=== PATIENT | male | born 1965 | race Two or more races ===

== ENCOUNTER 2017-02-13 09:56 | Day surgery (SDC) | payer OTHER ==
[2017-02-10 17:22] VITALS: BMI 28.6
[2017-02-13] VITALS (11 sets, daily range): BP systolic 105–137; BP diastolic 76–88; PULSE 66–94; RESP 11–20; Ht 180.3 cm; Wt 89.2 kg
[~2017-02-13] VITALS: Ht 180.3 cm; Wt 89.2 kg
[~2017-02-13 09:56] MED LIST: CIPROFLOXACIN 400 MG in D5W 200 ML IVPB SCH
[2017-02-13 11:29] LABS: ADD SCAN DIFF NO
[2017-02-13 11:43] LABS: BASOPHILS % 0.3 % (0.0-2.0); EOSINOPHILS # 0.1 10^3/ul (0.0-0.5); EOSINOPHILS % 0.9 % (0.0-7.0); HEMOGLOBIN 15.7 g/dl (14.0-18.0); LYMPHOCYTES # 3.4 10^3/ul (0.8-2.9); LYMPHOCYTES % 28.5 % (15.0-51.0); MEAN CORPUSCULAR HEMOGLOBIN 31.2 pg (29.0-33.0); MEAN CORPUSCULAR HGB CONC 34.9 g/dl (32.0-37.0); MEAN CORPUSCULAR VOLUME 89.5 fl (82.0-101.0); MEAN PLATELET VOLUME 12.2 fl (7.4-10.4); MONOCYTE # 1.2 10^3/ul (0.3-0.9); MONOCYTES % 10.1 % (0.0-11.0); NEUTROPHILS % 59.7 % (39.0-77.0); PLATELET COUNT 171 10^3/UL (140-415); RED BLOOD COUNT 5.03 10^6/ul (4.70-6.10); RED CELL DISTRIBUTION WIDTH 12.8 % (11.5-14.5); WHITE BLOOD COUNT 11.8 10^3/ul (4.8-10.8)
[2017-02-13 11:49] LABS: INR 1.08; PT RATIO 1.1
[2017-02-13 11:50] LABS: PARTIAL THROMBOPLASTIN TIME 25.2 Sec (25.0-35.0)
[2017-02-13 11:53] LABS: CALCIUM 9.1 mg/dl (8.4-10.2); CREATININE 0.5 mg/dl (0.61-1.24)
[2017-02-13] MEDS ORDERED: INSULIN REGULAR 10 ML INJ IV ONE ×2 (12:54→13:00)
[2017-02-13] MEDS ORDERED: INSULIN ASPART [NOVOLOG] 3 ML PEN IV ONE (13:00)
[2017-02-13] MEDS ORDERED: INSULIN REGULAR, HUMAN 100 UNIT/1 ML 3ML VIAL IV ONE (13:00)
[2017-02-13] MEDS ORDERED: FENTAnyl 50 MCG/ML VIAL ONE (13:08)
[2017-02-13] MEDS ORDERED: NEOSTIGMINE 3 MG/3 ML SYRINGE ONE (13:11)
[2017-02-13] MEDS ORDERED: ROCURONIUM 50 MG INJ ONE (13:11)
[2017-02-13] MEDS ORDERED: LIDOCAINE 2% (SDV) 5 ML INJ ONE (13:11)
[2017-02-13] MEDS ORDERED: GLYCOPYRROLATE 0.4 MG INJ ONE (13:11)
[2017-02-13] MEDS ORDERED: SUCCINYLCHOLINE CHLORIDE 100 MG/5 ML SYG IV ONE (13:11)
[2017-02-13] MEDS ORDERED: PROPOFOL 20 ML ONE (13:11)
--- NOTE | 2017-02-13 13:42 | HP ---
DATE OF ADMISSION: 02/13/2017 HISTORY OF PRESENT ILLNESS: Manohar is a 51-year-old man with a history of nephrolithiasis who prese nted with a retained stent. He is status post 2 lithotripsies in June and a stent was placed i n September 2016. He is noted to have on KUB a retained left ureteral stent with stone burden in the lower pole of the kidney. An in-office attempt at removal of the stent was undertaken, but due to encrustation, this was not able to be performed. The patient now presents today for cystoscopy, end oscopic removal of left ureteral stent, possible endoscopic holmium laser lithotripsy, ureteroscopy with reinsertion of stent. PAST MEDICAL HISTORY: Nephrolithiasis, diabetes, hypertension, hyperlipidemia. PAST SURGICAL HISTORY: ESWL and insertion of a stent. HOME MEDICATIONS: 1. Lisinopril. 2. Glimepiride. 3. Simvastatin. 4. Aspirin on hold. PHYSICAL EXAMINATION: LUNGS: Clear breath sounds bilaterally. HEART: Regular rate and rhythm. ABDOMEN: Soft, nondistended, positive tenderness on the left side. BACK: Positive left CVA tenderness. GENITALIA: Normal shaft of penis, meatus, scrotum, testicles, and epididymis. IMPRESSION: Retained left ureteral stent status post 2 ESWL. PLAN: Cystoscopy, removal of left stent, possible ureteroscopy, endoscopic holmium laser lithotrips y, insertion of stent. 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 We additionally discussed that I may not be able to remove the stent today, and that a secondary procedure including an open procedu re may be required. The potential of removal of the stent and thus causing injury to the ureter, bl adder, and kidney have additionally been discussed. He understands that this is a highly risky proc edure and should obstruction being noted or concern for edema, then a secondary stent would be repla lola, and that this would then have to be removed in a timely fashion in the office. The potential i mplications of the retained stent were additionally reviewed. I feel they are well informed. Gener al complications of this procedure were additionally discussed including, but not limited to, anesth etic risk of DVT, PE, MS, anaphylaxis, respiratory failure, injury to the penis, urethra, prostate, bladder, ureter, kidney, and surrounding tissues. They elected to proceed as above. Dictated By: YESENIA MEHTA/YUVAL Conf#: [id number] DID#: [id number]
[2017-02-13] MEDS ORDERED: IOHEXOL 300MG/ML 30 ML BTL ONE (13:47)
[2017-02-13] MEDS ORDERED: METOCLOPRAMIDE 10 MG INJ IV PRN (14:00)
[2017-02-13] MEDS ORDERED: HYDROmorphONE (0.2 MG/ML) 10ML SYG IV PRN ×3 (14:00)
[2017-02-13] MEDS ORDERED: ONDANSETRON 4 MG INJ IV PRN (14:00)
[2017-02-13] MEDS ORDERED: FENTAnyl 50 MCG/ML VIAL IV PRN (14:00)
[2017-02-13] MEDS ORDERED: MEPERIDINE 25 MG INJ IV PRN (14:00)
[2017-02-13] MEDS ORDERED: ALBUTEROL 0.083% (NEB) 2.5 MG/3 ML AMP HHN ONE (14:00)
[2017-02-13] MEDS ORDERED: DIPHENHYDRAMINE 50 MG INJ IV PRN (14:00)
--- NOTE | 2017-02-13 14:24 | PDOCDIS ---
Discharge Instructions DIAGNOSIS Discharge Diagnosis: kidney stone CONDITION Patient Condition: Good HOME CARE INSTRUCTIONS: Diet Instructions: Regular ACTIVITY: Activity Restrictions: No Restrictions FOLLOW UP/APPOINTMENTS Appointments 1 week OTHER ORDERS: Other Orders: dc to home when awake and stable. does not need to void before discharge. YESENIA OLVERA Feb 13, 2017 14:24
--- NOTE | 2017-02-13 15:51 | OPR ---
DATE OF OPERATION: 02/13/2017 BRIEF HISTORY: Manohar is a gentleman with a retained left ureteral stent and significant stone carson en in the left lower pole who presents for removal of stent which was not able to be performed in e office. The risks of the procedure were reviewed and he would like to proceed. PREOPERATIVE DIAGNOSIS: Nephrolithiasis retained stent. POSTOPERATIVE DIAGNOSIS: Nephrolithiasis retained stent. OPERATION PERFORMED: Cystoscopy, removal left ureteral stent, left retrograde pyelogram, left urete roscopy, insertion, left ureteral stent. SURGEON: Yesenia Dutton MD ANESTHESIA: General. COMPLICATIONS: None. DRAINS: 26 cm 6-Romanian stent. DESCRIPTION OF PROCEDURE: On the operating room table in the supine lithotomy position, the patient was prepped and draped in the usual fashion after anesthesia was induced. A timeout was then taken . Appropriate pressure points were padded and he received preoperative antibiotic therapy. A KUB w as obtained which demonstrated the previously placed left ureteral stent to be in proper anatomical position. Rigid cystoscopy was undertaken with a 12-degree, 30-degree and 70-degree angle lens. No abnormalities of the anterior urethra could be appreciated. Enlargement of the lateral lobes of e prostate was noted. The bladder was inspected in a systematic fashion protruding from the left ur eteral orifice was a left ureteral stent, marked edema around this area was appreciated encrustation of the distal stent was additionally noted. The right ureteral orifice was within normal limits. There is trabeculation of the bladder, but no other abnormalities. Utilizing the rigid graspers, e left ureteral stent was removed intact. There was resistance yet with gentle manipulation the karley nt was slowly removed without any noted complications. Review of the stent revealed that it was rem radhika intact. Yet, there was encrustation around the stent. A left retrograde pyelogram was then un dertaken. There were multiple filling defects in the distal left ureter. There was no extravasatio n of contrast. There was a significant amount of stone noted in the lower pole of the left kidney. Due to the above with concern for retained fragments in the distal ureter, ureteroscopy was easily undertaken after a 0.35 sensor wire was placed up to the level of the renal pelvis. The ureteroscop e was inserted into the distal ureter. Marked edema of the ureter was appreciated yet there was no noted stone. The ureteroscope was then removed intact and due to concern of edema a 26 cm 6-Romanian double-J ureteral stent was inserted with the proximal coiling in the upper renal esperanza in the dista l aspect coiling within the bladder touch the distal limb was a taper string. Proper position was c onfirmed with direct vision fluoroscopy and a KUB. He tolerated procedure well and returned to the recovery room in stable condition. He will follow up in the office to discuss staged extracorporea l shockwave lithotripsy or removal of stent within 1 to 2-week period of time. Once again it was di scussed with the patient and his family members the importance of timely removal of the stent, withi n a 3 month period of time, so that repeat encrustation and concern does not occur. I feel they are well informed of my concerns. Dictated By: YESENIA MEHTA/NTS Conf#: [id number] DID#: [id number]
--- NOTE | 2017-02-14 11:21 | RADRPT ---
PROCEDURE: X-ray fluoroscopy guidance CLINICAL INDICATION: RETROGRADES, REMOVAL AND REPLACEMENT JJ STENT LEFT TECHNIQUE: Fluoroscopic guidance was utilized for intraoperative procedure. COMPARISON: None. FINDINGS: Fluoroscopic guidance was utilized for intraoperative procedure. 16 seconds of fluoroscopy time was utilized for the procedure. 7 x-ray images were obtained during the procedure. A left ureteral stent is noted with the superior pigtail curled within an upper pole esperanza. IMPRESSION: X-ray fluoroscopic guidance utilized for intraoperative procedure. Successful placement of a left ureteral stent. Please see procedure note details. RPTAT: EE Physician Remy Date Time Electronically viewed and signed by Physician Remy on 02/14/2017 11:21 RA/
== END 2017-02-13 15:37 | disposition home or self-care (01) ==
LOC: SDS 09:56
PROVIDERS: ATTEND Urology
DX: N20.0 Calculus of kidney (principal); E11.9 Type 2 diabetes mellitus without complications; I10 Essential (primary) hypertension; E78.5 Hyperlipidemia, unspecified; E66.9 Obesity, unspecified; Z68.27 Body mass index [BMI] 27.0-27.9, adult
CPT/HCPCS: 52332; 74420; 80048; 82962; 85025; 85610; 85730; C2617; J0330; J0744; J2710; J3010; Q9967; Z7512; Z7610; J1815

== ENCOUNTER 2017-03-03 10:41 | Day surgery (SDC) | payer OTHER ==
[2017-03-02 14:08] VITALS: BMI 27.7
[2017-03-03] VITALS (10 sets, daily range): BP systolic 78–118; BP diastolic 6–69; PULSE 72–99; RESP 14–20; Ht 180.3 cm; Wt 91.0 kg
[~2017-03-03] VITALS: Ht 180.3 cm; Wt 91.0 kg
[~2017-03-03 10:41] MED LIST changes: +CIPROFLOXACIN 400 MG in D5W 200 ML IVPB ONE; -CIPROFLOXACIN 400 MG in D5W 200 ML IVPB SCH; +FENTAnyl 50 MCG/ML VIAL ONE; +MIDAZOLAM 1 MG/ML 2 ML INJ ONE; +PROPOFOL 20 ML ONE
[2017-03-03] MEDS ORDERED: PROPOFOL 20 ML ONE (10:43)
[2017-03-03] MEDS ORDERED: MEPERIDINE 25 MG INJ IV PRN (11:00)
[2017-03-03] MEDS ORDERED: EPHEDrine SULFATE 50 MG/5 ML SYG IV PRN (11:00)
[2017-03-03] MEDS ORDERED: HYDROmorphONE (0.2 MG/ML) 10ML SYG IV PRN ×3 (11:00)
[2017-03-03] MEDS ORDERED: ONDANSETRON 4 MG INJ IV PRN (11:00)
[2017-03-03] MEDS ORDERED: morphine (1 MG/ML) 10ML SYRINGE IV PRN ×3 (11:00)
[2017-03-03] MEDS ORDERED: METOCLOPRAMIDE 10 MG INJ IV PRN (11:00)
[2017-03-03] MEDS ORDERED: DIPHENHYDRAMINE 50 MG INJ IV PRN (11:00)
[2017-03-03] MEDS ORDERED: LABETALOL HCL 20MG INJ IV PRN (11:00)
[2017-03-03 11:38] LABS: ADD SCAN DIFF NO
[2017-03-03 11:44] LABS: BASOPHILS % 0.2 % (0.0-2.0); EOSINOPHILS # 0.2 10^3/ul (0.0-0.5); EOSINOPHILS % 1.5 % (0.0-7.0); HEMATOCRIT 42.4 % (42.0-52.0); LYMPHOCYTES # 2.8 10^3/ul (0.8-2.9); LYMPHOCYTES % 22.9 % (15.0-51.0); MEAN CORPUSCULAR HEMOGLOBIN 31.9 pg (29.0-33.0); MEAN CORPUSCULAR HGB CONC 35.4 g/dl (32.0-37.0); MEAN CORPUSCULAR VOLUME 90.2 fl (82.0-101.0); MEAN PLATELET VOLUME 11.7 fl (7.4-10.4); MONOCYTE # 1.4 10^3/ul (0.3-0.9); MONOCYTES % 11.6 % (0.0-11.0); NEUTROPHIL # 7.6 10^3/ul (1.6-7.5); NEUTROPHILS % 63.5 % (39.0-77.0); PLATELET COUNT 175 10^3/UL (140-415); RED CELL DISTRIBUTION WIDTH 12.2 % (11.5-14.5)
[2017-03-03 11:58] LABS: ALBUMIN 3.9 g/dl (3.3-4.9); ALBUMIN/GLOBULIN RATIO 1.3; BILIRUBIN,INDIRECT 0.5 mg/dl (0-1.1); BILIRUBIN,TOTAL 0.5 mg/dl (0.2-1.3); TOTAL PROTEIN 6.9 g/dl (6.1-8.1)
[2017-03-03 12:00] LABS: INR 1.05; PROTIME 13.7 Sec (12.2-14.2); PT RATIO 1.1
[2017-03-03 12:01] LABS: PARTIAL THROMBOPLASTIN TIME 28.3 Sec (25.0-35.0)
[2017-03-03 12:02] LABS: CALCIUM 9.2 mg/dl (8.4-10.2); CREATININE 0.51 mg/dl (0.61-1.24); POTASSIUM 3.9 mmol/L (3.5-5.1)
--- NOTE | 2017-03-03 12:19 | PREOPHP ---
DATE OF ADMISSION: 03/03/2017 HISTORY OF PRESENT ILLNESS: Manohar is a 51-year-old male with nephrolithiasis. He is status post e xchange of an encrusted ureteral stent. In the lower pole of the left kidney, he is noted to have a 9 mm stone which is radiodense. He now presents for left extracorporeal shock wave lithotripsy. PAST MEDICAL HISTORY: Nephrolithiasis, diabetes, hyperlipidemia. PAST SURGICAL HISTORY: Status post exchange of ureteral stent, ESWL. ALLERGIES: NONE. MEDICATIONS: 1. Lisinopril. 2. Glimepiride. 3. Simvastatin. 4. Aspirin on hold. REVIEW OF SYSTEMS: As per chart. PHYSICAL EXAMINATION: LUNGS: Good breath sounds bilaterally. HEART: Regular rate and rhythm. ABDOMEN: Soft, nontender, no palpable masses. FLANK: No CVA tenderness, no masses. IMPRESSION: Left nephrolithiasis. PLAN: Left extracorporeal shock wave lithotripsy. How the procedure is performed, potential compli cations and side effects were additionally reviewed including, but not limited to, renal fracture, d amage to surrounding organs, infection, obstruction, pain, hypertension, exacerbation of diabetes, r equirement for staged intervention, requirement of removal of stent in a timely fashion to avoid enc rustation, and urinary retention as well as anesthetic risks including, but not limited to, DVT, PE, ID. He would like to proceed with the above. This has been explained to him on multiple occasions . All questions answered. Dictated By: YESENIA OLVERA MD EGR/NTS Conf#: [id number] DID#: [id number] CC: YESENIA OLVERA MD;*End*
[2017-03-03] MEDS ORDERED: CIPROFLOXACIN 400MG/D5W 200 ML ONE (13:31)
[2017-03-03] MEDS ORDERED: DEXAMETHASONE 4 MG/ML 1 ML INJ ONE (13:49)
[2017-03-03] MEDS ORDERED: KETOROLAC 30 MG INJ ONE (13:49)
[2017-03-03] MEDS ORDERED: METOCLOPRAMIDE 10 MG INJ ONE (13:49)
[2017-03-03] MEDS ORDERED: ONDANSETRON 4 MG INJ ONE (13:49)
--- NOTE | 2017-03-03 14:10 | PDOCDIS ---
Discharge Instructions CONDITION Patient Condition: Good HOME CARE INSTRUCTIONS: Diet Instructions: Regular ACTIVITY: Activity Restrictions: No Restrictions FOLLOW UP/APPOINTMENTS Appointments 2 weeks, call for appointment OTHER ORDERS: Other Orders: dc to home when awake and satble does not need to void prior to discharge SCHOOL/WORK RELEASE May return to School/Work on: March 21, 2017 YESENIA OLVERA March 03, 2017 14:10
--- NOTE | 2017-03-03 14:42 | OPR ---
DATE OF OPERATION: BRIEF HISTORY: Manohar is a 51-year-old male with nephrolithiasis. He is status post exchange of an encrusted left ureteral stent and now presents for left extracorporeal shockwave lithotripsy of a 9 x 9-mm left lower pole stone. PREOPERATIVE DIAGNOSIS: Left nephrolithiasis. POSTOPERATIVE DIAGNOSIS: Left nephrolithiasis. PROCEDURE: Left extracorporeal shockwave lithotripsy. SURGEON: Dr. Dutton. ANESTHESIA: General. COMPLICATIONS: None. DESCRIPTION OF PROCEDURE: The patient was brought into the operating room and placed on the MWI F2 lithotripter for left extracorporeal shockwave lithotripsy. Appropriate pressure points we re padded. He received preoperative antibiotic therapy and a time-out was undertaken. Fluoroscopy was undertaken in the AP and lateral projection, which demonstrated the previously placed left urete ral stent to be in proper anatomical position in the lower pole. Overlying the renal fossa was a 9 x 9-mm radiodense stone. The stone burden was placed in the appropriate focal point which allowed f or left extracorporeal shockwave lithotripsy, with an initial energy setting of 4, which was progres sively increased to 7 at 200 shocks. A pause was undertaken. Intermittent fluoroscopy demonstrated the focal point to be in proper anatomical position. His position was adjusted appropriately, and as indicated excellent fragmentation was noted. He tolerated the procedure well and transferred to the recovery room in stable condition. In 2 weeks' time he will obtain a followup KUB with obliques and possible cysto stent removal versus staged intervention. I have called into his pharmacy [facility], one to two tabs p.o. q.4h, dispense #30, no refills. Dictated By: YESENIA MEHTA/NTS Conf#: [id number] DID#: [id number]
--- NOTE | 2017-03-03 15:43 | RADRPT ---
PROCEDURE: Intraoperative imaging of the abdomen and pelvis with fluoroscopy. CLINICAL INDICATION: Abdominal pain. Intraoperative. TECHNIQUE: 3 images of the abdomen and pelvis were obtained in the operating room with an image in tensifier. No radiologist was in attendance. 142.7 seconds of fluoroscopy time was used. COMPARISON: 02/13/2017. FINDINGS: Images demonstrate a left ureteral stent with a pigtail noted overlying the region of the left renal pelvis. The distal pigtail is not imaged. IMPRESSION: 1. Left ureteral stent noted as described above. RPTAT: QQ .Ian Shelby MD, MD Date Time Electronically viewed and signed by .Ian Shelby MD, on 03/03/2017 15:43 .R/
== END 2017-03-03 15:25 | disposition home or self-care (01) ==
LOC: SDS 10:41
PROVIDERS: ATTEND Urology
DX: N20.0 Calculus of kidney (principal); E11.9 Type 2 diabetes mellitus without complications; E78.5 Hyperlipidemia, unspecified
CPT/HCPCS: 50590; 74430; 80053; 82962; 85025; 85610; 85651; 85730; J0744; J1100; J1885; J2250; J2405; J2765; J3010; Z7512; Z7610